=== PATIENT | male | born 1990 | race African-American/Black ===

== ENCOUNTER 2017-11-05 05:33 | Emergency (ER) | payer OTHER ==
[~2017-11-05] VITALS: Ht 170.2 cm; Wt 77.0 kg
[2017-11-05] MEDS ORDERED: IBUPROFEN 600MG TABLET PO ONE (08:45)
[2017-11-05 10:19] VITALS: BP 101/45
== END 2017-11-05 10:21 | disposition home or self-care (01) ==
LOC: ER 05:33
DX: M54.5 Low back pain (principal); M25.511 Pain in right shoulder; J45.909 Unspecified asthma, uncomplicated
CPT/HCPCS: 72100; 73030; 99284; Z7610